=== PATIENT | male | born 1940 | race Caucasian/White ===

== ENCOUNTER → 2016-12-31 | Outpatient (CLI) | payer OTHER ==
[~2016-12-31] MED LIST: ASPI325T39 PO; CRESTOR PO; CRS/10 PO; DUTACAP PO; HYDR-5688 PO; LISI-461 PO; LVMI SC; METO1TAB69 PO; MULT-506 PO; NRN/300 PO; NVLG SC; PRLSR20 PO; RXC5 PO; SITA50TA5 PO
--- NOTE | 2016-12-31 14:49 | DIAGNOSTIC IMAGING REPORT ---
TWO VIEW CHEST CLINICAL HISTORY: Preoperative examination. FINDINGS: PA and lateral chest radiographs are obtained No prior studies are available for comparison at the time of dictation. The patient is status post midline sternotomy. The heart is top normal in size. There is atherosclerotic calcification of the thoracic aorta. The pulmonary vasculature is noncongested. Minimal atelectasis is seen at the left lung base. The lungs and pleural spaces are otherwise clear. There is no pneumothorax. The bony thorax appears intact. IMPRESSION: No active disease in the chest. Electronically signed by: Keith Nava M.D. 12/31/2016 2:48 PM Dictated Date/Time: 12/31/2016 2:45 PM
[2016-12-31 15:28] LABS: BASO % 0.2 %; BASO ABS # 0.02 K/uL (0-0.2); COMPLETE YES; EOS % 5.8 %; HEMATOCRIT 40.3 % (42-52); IG% 0.2 %; LYMPH % 34.2 %; LYMPH ABS # 2.75 K/uL (1.2-3.4); MEAN CELL VOLUME 85.4 fL (80-100); MEAN CORPUSCULAR HEMOGLOBIN 29.2 pg (25-34); MEAN CORPUSCULAR HGB CONC 34.2 g/dl (32-36); MEAN PLATELET VOLUME 10.9 fL (7.4-10.4); MONO % 8.2 %; NEUT % 51.4 %; PLATELET COUNT 229 K/uL (130-400); RED BLOOD COUNT 4.72 M/uL (4.7-6.1); WHITE BLOOD COUNT 8.05 K/uL (4.8-10.8)
[2016-12-31 15:41] LABS: BLOOD UREA NITROGEN 22 mg/dl (7-18); BUN/CREATININE RATIO 18.2 (10-20); CALCIUM 8.9 mg/dl (8.5-10.1); CARBON DIOXIDE 24 mmol/L (21-32); CHLORIDE 107 mmol/L (98-107); GLUCOSE 125 mg/dl (70-99); POTASSIUM 4.3 mmol/L (3.5-5.1); SODIUM 142 mmol/L (136-145)
== END | disposition home or self-care (01) ==
LOC: C.CPL 13:43
PROVIDERS: ATTEND Orthopaedic Surgery
DX: Z01.810 Encounter for preprocedural cardiovascular examination (principal); Z01.811 Encounter for preprocedural respiratory examination; Z01.812 Encounter for preprocedural laboratory examination; M65.331 Trigger finger, right middle finger

== ENCOUNTER → 2017-01-15 | Day surgery (SDC) | payer OTHER ==
[2017-01-01 14:44] VITALS: Ht 181.6 cm; Wt 100.0 kg
[~2017-01-15] VITALS: Ht 181.6 cm; Wt 100.0 kg
[~2017-01-15] MED LIST changes: +ATROPINE SULFATE 0.1 MG/ML 5ML SYR IV PRN; +CEFAZOLIN 2000 MG/60 ML D5W IV SCH; +EpHEDrine SULFATE INJ 50 MG/ML AMP IV PRN; +FENTANYL CITRATE INJ 50 MCG/1 ML 2 ML VIAL IV PRN; +FENTANYL CITRATE INJ 50 MCG/1 ML 2 ML VIAL ONE; +FLUMAZENIL 0.1 MG/1 ML 10 ML VIAL IV PRN; +HYDROCODONE/ACETAMOPHEN 5/325MG TAB PO PRN; +HYDROmorphone INJ 2 MG/ML SYR/VIAL IV PRN; +LABETALOL HCL IV 5 MG/ML 20ML IV PRN; +LACTATED RINGER'S 1000ML 1,000 ML IV SCH; +LIDOCAINE HCL 2% LOCAL 20 ML VIAL ONE; +MEPERIDINE HCL 25 MG/ML CARP IV PRN; +MIDAZOLAM HCL 1 MG/ML 2ML VIAL ONE; +NALOXONE HCL 0.4 MG/1 ML VIAL/CARP IV PRN; +ONDANSETRON INJ 2 MG/ML 2 ML VIAL IV PRN; +PHENYLEPHRINE 100MCG/ML 5ML SYR IV PRN; +PROPOFOL IV EMULSION 10 MG/ML 20 ML VIAL IV ONE; +SODIUM CHLORIDE 0.9% 1000ML 1,000 ML IV SCH
--- NOTE | 2017-01-15 07:41 | History & Physical Bridge - SC ---
H&P Re-Evaluation Bridge Note: I have examined the patient, reviewed the History & Physical and in the interval since the performance of the History & Physical I have noted the following changes of clinical significance: No changes noted
[2017-01-15 10:05] VITALS: TEMP 36.7
--- NOTE | 2017-01-15 10:07 | Discharge Instructions-SurgCtr ---
Discharge Instructions Date of Service Jan 15, 2017. Visit Reason for Visit: Bilateral Long Trigger Fingers Discharge Discharge Diagnosis / Problem: SAME ABOVE Discharge Goals Goal(s): Decrease discomfort, Improve function Medications Stopped Medications Name(s): held janumet for three days Restart Stopped Medication(s): MAY RESTART 01/15/2017 Activity Recommendations Activity Limitations: as noted below Lifting Limitations: gradually increase as tolerated Exercise/Sports Limitations: gradually increase as tolerated Anesthesia . Post Anesthesia Instructions: If you have had General Anesthesia or IV Sedation: * Do not drive today. * Resume driving when surgeon permits. * Do not make important decisions or sign legal documents today. * Call surgeon for: 1. Temperature elevations greater than 101 degrees F. 2. Uncontrollable pain. 3. Excessive bleeding. 4. Persistent nausea and vomiting. 5. Medication intolerance (nausea, vomiting or rash). * For nausea and vomiting use only clear liquids such as: tea, soda, bouillon until nausea subsides, then gradually increase diet as tolerated. * If you have any concerns or questions, call your surgeon's office. If physician is unavailable and it is an emergency, call 911 or go to the nearest emergency room. . Instructions / Follow-Up Instructions / Follow-Up MEDICATIONS: * Resume previous medications unless instructed otherwise by your surgeon. * Always take pain medication on a full stomach or with food to avoid upset stomach. * Do not drink alcohol or drive while taking narcotics. * Ibuprofen or Tylenol may be taken if narcotic not needed. SPECIAL CARE INSTRUCTIONS: __ None _X_ Keep extremity elevated and iced x 48 hours; apply ice 20-30 minutes 8-10 times/day. May remove at night. __ Sling __24 hrs/day __ Remove at night __ Shoulder Immobilizer __ 24 hrs/day __ Remove at night _X_ Dressing __ Maintain until seen in office, may shower with plastic over site _X_ Remove dressings in 5 DAYS. MAY SHOWER SOONER IF COVERED WITH PLASTIC BAG _X_ Cover incisions with band-aids after showering __ Do not remove steri-strips Call physician if chills or temperature rises above 102 degrees or pain unrelieved by prescribed pain medications at . . Diet Recommendations Home Diet: no limitations Fluid Restriction: None Procedures Procedures Performed: Bilateral Long Trigger Finger Releases Pending Studies Studies pending at discharge: no Work Instructions Return To Work: after follow-up Lifting Limitations: no more than 10 pounds Medical Emergencies . Who to Call and When: Medical Emergencies: If at any time you feel your situation is an emergency, please call 911 immediately. . Non-Emergent Contact Non-Emergency issues call your: Primary Care Provider Call Non-Emergent contact if: you have a fever, temperature is above 101.5 . . "Provider Documentation" section prepared by Estevan Franco.
--- NOTE | 2017-01-15 10:21 | Anesthesia Progress Nt - [facility] ---
Anesthesia Post Op Note Date & Time Jan 15, 2017 at 10:20 Vital Signs Pain Intensity: 0 Vital Signs Past 12 Hours Date Time Temp Pulse Resp B/P Pulse Ox O2 Delivery O2 Flow Rate FiO2 01/15/17 10:05 36.7 65 16 123/64 94 Room Air 01/15/17 07:55 36.8 16 145/87 94 Room Air Notes Mental Status: alert / awake / arousable, participated in evaluation Pt Amnestic to Procedure: Yes Nausea / Vomiting: adequately controlled Pain: adequately controlled Airway Patency, RR, SpO2: stable & adequate BP & HR: stable & adequate Hydration State: stable & adequate Anesthetic Complications: no major complications apparent
[2017-01-15 10:26] VITALS: BP 165/82; PULSE 65; O2SAT 92
--- NOTE | 2017-01-15 12:26 | [facility] Post Operative Brief Note ---
Immediate Operative Summary Operative Date Jan 15, 2017. Pre-Operative Diagnosis Bilateral trigger fingers--long finger Post-Operative Diagnosis same Procedure(s) Performed Bilateral Long Trigger Finger Releases Surgeon Dr Mckenzie [facility] Counselor Surgeon(s) Oanh Franco PA-C Estimated Blood Loss 1 ml Findings as above Specimens 0 Complication(s) None Disposition Recovery Room / PACU
--- NOTE | 2017-01-15 12:35 | OPERATIVE REPORT ---
DATE OF OPERATION: 01/15/2017 PREOPERATIVE DIAGNOSIS: Trigger fingers, bilateral middle fingers. POSTOPERATIVE DIAGNOSIS: Same. PROCEDURE: Open trigger finger release of bilateral middle fingers. SURGEON: Dr. Pierce Mckenzie. RACKMAN: Conner Franco PA-C, whose assistance was necessary for positioning the arm and helping with instrumentation. ANESTHESIA: Local with sedation. COMPLICATIONS: None. CONDITION: Stable to PACU. INDICATIONS: Grover is a 76-year-old male who presented to my office with complaints of triggering of his bilateral middle fingers. He had a lot of pain at the A1 pulleys. After failing conservative treatment, he elected to undergo a trigger finger release. On 01/15/2017 he arrived at [facility] for the above procedure. He was seen in the preoperative holding area and the operative extremity was identified and signed. He was given a preoperative antibiotic, taken back to the operating room, laid on the table in supine position and given basic sedation. Both hands were then prepped and draped in sterile fashion. Time-out was done and the patient and operative extremity was properly identified. The surgical site was anesthetized with lidocaine. A longitudinal incision was made directly over the A1 sailaja of the middle finger. Dissection was taken down through the fascia with care not to disrupt the digital nerves. The A1 sailaja was easily identified. A knife and tenotomy scissors were then used to completely resect the A1 sailaja. Complete resection was checked both proximally and distally. The wound was then irrigated and closed with 4-0 nylon sutures and placed in a soft dressing. The same procedure was done to the contralateral side. A longitudinal incision was made over the A1 sailaja and it was released. Complete release was checked both proximally and distally. The wound was then closed with 4-0 nylon sutures placed and he was placed in a soft dressing. He was then taken to the postanesthesia care unit in stable condition. He tolerated the procedure well. I attest to the content of the Intraoperative Record and any orders documented therein. Any exceptio ns are noted below.
== END | disposition home or self-care (01) ==
LOC: X.SURG 07:31
PROVIDERS: ATTEND Orthopaedic Surgery
DX: M65.331 Trigger finger, right middle finger (principal); M65.332 Trigger finger, left middle finger; Z98.890 Other specified postprocedural states; I51.9 Heart disease, unspecified; Z82.49 Family history of ischemic heart disease and other diseases of the circulatory system

== ENCOUNTER 2017-02-27 05:12 | Inpatient (IN) | payer OTHER ==
[2017-01-27 13:06] VITALS: BMI 31.0
--- NOTE | 2017-01-27 13:55 | PAT Medication Instructions ---
Service Date Jan 27, 2017. Current Home Medication List Aspirin (Aspirin Ec), 325 MG PO QAM Dutasteride-Tamsulosin Hcl (Sera), 1 CAP PO QPM Gabapentin (Neurontin), 300 MG PO BID Insulin Aspart (Novolog), UNITS SC UD Insulin Detemir (Levemir), 104 UNITS SC HS Lisinopril (Zestril), 10 MG PO QAM Metoprolol Succ (Toprol Xl) (Toprol-Xl ), 100 MG PO QAM Multivitamin (Multivitamin), 1 TAB PO QAM Omeprazole (Prilosec), 20 MG PO QAM Rosuvastatin Calcium (Crestor), 10 MG PO QPM Sitagliptin-Metformin Hcl (Janumet), 1 TAB PO BID Medication Instructions For Your Scheduled Surgery - Per surgeon/cardiology/vascular surgeon instructions: Aspirin (Aspirin Ec), 325 MG PO QAM (to decrease to ASA 81mg for 7 days prior to surgery) - Hold the following medications 48 hours prior to surgery: Sitagliptin-Metformin Hcl (Janumet), 1 TAB PO BID - Hold the following medications the morning of surgery: Multivitamin (Multivitamin), 1 TAB PO QAM Lisinopril (Zestril), 10 MG PO QAM Insulin Aspart (Novolog), UNITS SC UD - Take the following medications the morning of surgery with a sip of water: Omeprazole (Prilosec), 20 MG PO QAM Metoprolol Succ (Toprol Xl) (Toprol-Xl ), 100 MG PO QAM Gabapentin (Neurontin), 300 MG PO BID - Take the following medications as scheduled the night before surgery: Rosuvastatin Calcium (Crestor), 10 MG PO QPM Insulin Detemir (Levemir), 104 UNITS SC HS Gabapentin (Neurontin), 300 MG PO BID Dutasteride-Tamsulosin Hcl (Sera), 1 CAP PO QPM If you have any questions please call us at [phone] (Marguerite Lou PA-C) or [phone] or [phone]
[2017-01-27 14:55] LABS: URINE APPEARANCE CLEAR (CLEAR); URINE BILIRUBIN NEG (NEG); URINE COLOR YELLOW; URINE NITRITE NEG (NEG); URINE SPECIFIC GRAVITY 1.015 (1.000-1.030); UROBILINOGEN NEG (NEG)
[2017-01-27 15:07] LABS: MANUAL MICROSCOPIC REQUIRED? NO; REVIEW REQ? NO
[2017-01-27 15:11] LABS: PROTHROMBIN TIME (PATIENT) 10.9 SECONDS (9.0-12.0)
--- NOTE | 2017-02-26 18:21 | HISTORY & PHYSICAL EXAMINATION ---
DATE OF ADMISSION: 02/27/2017 PREOPERATIVE DIAGNOSIS: Primary osteoarthritis of the left knee. HISTORY OF PRESENT ILLNESS: Grover is a pleasant 76-year-old male who has been dealing with chronic left knee pain. X-rays and clinical examination are diagnostic for primary osteoarthritis of the knee. He has failed years of conservative treatment including multiple intra-articular injections and elected to proceed with a total knee arthroplasty. PAST MEDICAL HISTORY: Significant for heart disease, diabetes and hyperlipidemia. PAST SURGICAL HISTORY: Significant for an endarterectomy and a cardiac procedure. ALLERGIES: None. MEDICATIONS: Include Janumet, aspirin, gabapentin, Sera, Levemir, Lipitor, lisinopril, metoprolol, NovoLog, omeprazole and Zyrtec. FAMILY HISTORY: Noncontributory. SOCIAL HISTORY: He is . Has 1-2 drinks a week. Denies tobacco or IV drug use. He is moderately active. REVIEW OF SYSTEMS: He complains of left knee pain. All other pertinent review of systems is negative. PHYSICAL EXAMINATION: GENERAL: He is awake, alert and oriented x3. He is in no apparent distress. He is very pleasant. HEENT: Pupils are equal, round and reactive to light. Extraocular motion intact. Oral mucosa is pink, moist. HEART: Regular rate per radial pulse. LUNGS: Gloria symmetrically bilaterally with no audible breath sounds. ABDOMEN: Soft, nontender, nondistended. MUSCULOSKELETAL: On physical examination of the left knee, there is no effusion. He has range of motion from 0-120 degrees. He does have crepitus through range of motion. There is no instability. He has painless range of motion of his hip and significant tenderness to palpation over both the medial and lateral femoral condyles. IMAGING DATA: X-rays of the left knee do show advanced osteoarthritis with joint space narrowing and osteophyte formation. IMPRESSION: Advanced osteoarthritis of the left knee. PLAN: Will proceed with a Biomet Vanguard left total knee arthroplasty. Postoperatively, he will be kept for 2 midnights in the hospital for postoperative medical management. We will start him on aspirin 325 mg twice a day for DVT prophylaxis.
[2017-02-27] VITALS (8 sets, daily range): BP systolic 117–156; BP diastolic 67–95; PULSE 65–93; TEMP 36.5–36.6; O2SAT 91–95; Ht 180.3 cm; Wt 101.8 kg
[~2017-02-27] VITALS: Ht 180.3 cm; Wt 101.8 kg
[~2017-02-27 05:12] MED LIST changes: -ATROPINE SULFATE 0.1 MG/ML 5ML SYR IV PRN; -CEFAZOLIN 2000 MG/60 ML D5W IV SCH; -CRESTOR PO; -EpHEDrine SULFATE INJ 50 MG/ML AMP IV PRN; -FENTANYL CITRATE INJ 50 MCG/1 ML 2 ML VIAL IV PRN; -FENTANYL CITRATE INJ 50 MCG/1 ML 2 ML VIAL ONE; -FLUMAZENIL 0.1 MG/1 ML 10 ML VIAL IV PRN; -HYDR-5688 PO; -HYDROCODONE/ACETAMOPHEN 5/325MG TAB PO PRN; -HYDROmorphone INJ 2 MG/ML SYR/VIAL IV PRN; -LABETALOL HCL IV 5 MG/ML 20ML IV PRN; -LACTATED RINGER'S 1000ML 1,000 ML IV SCH; -LIDOCAINE HCL 2% LOCAL 20 ML VIAL ONE; -MEPERIDINE HCL 25 MG/ML CARP IV PRN; +METO100T44 PO; -METO1TAB69 PO; -MIDAZOLAM HCL 1 MG/ML 2ML VIAL ONE; -NALOXONE HCL 0.4 MG/1 ML VIAL/CARP IV PRN; -ONDANSETRON INJ 2 MG/ML 2 ML VIAL IV PRN; -PHENYLEPHRINE 100MCG/ML 5ML SYR IV PRN; -PROPOFOL IV EMULSION 10 MG/ML 20 ML VIAL IV ONE; -RXC5 PO; -SODIUM CHLORIDE 0.9% 1000ML 1,000 ML IV SCH
[2017-02-27] MEDS ORDERED: FAMOTIDINE 20 MG TAB PO SCH (06:00)
[2017-02-27] MEDS ORDERED: ROPIVACAINE 5MG/ML 30 ML 150 MG, BUPIVACAINE/EPINEPHR 0.5% MPF 30 ML, KETOROLAC TROMETH... INFIL SCH ×7 (06:00)
[2017-02-27] MEDS ORDERED: ACETAMINOPHEN 500 MG TAB PO SCH (06:00)
[2017-02-27] MEDS ORDERED: GABAPENTIN 300 MG CAP PO SCH (06:00)
[2017-02-27] MEDS ORDERED: CEFAZOLIN 2000 MG/60 ML D5W 60 ML IV SCH (06:00)
[2017-02-27] MEDS ORDERED: LACTATED RINGER'S 1000ML 500 ML IV ONE (06:00)
[2017-02-27] MEDS ORDERED: LACTATED RINGER'S 1000ML 1,000 ML IV SCH ×2 (06:00)
[2017-02-27] MEDS ORDERED: BUPIVACAINE 0.25% 30 ML VIAL ONE (06:19)
[2017-02-27] MEDS ORDERED: BUPIVACAINE 0.5 % 5 MG/1 ML PF 10ML VIAL ONE (06:19)
[2017-02-27] MEDS ORDERED: ORTHO JOINT ANESTHETIC ONE (06:29)
[2017-02-27] MEDS ORDERED: BACITRACIN 50000 UNIT VIAL ONE (06:30)
[2017-02-27] MEDS ORDERED: MIDAZOLAM HCL 1 MG/ML 2ML VIAL ONE ×2 (06:37)
[2017-02-27] MEDS ORDERED: PROPOFOL IV EMULSION 10 MG/ML 20 ML VIAL IV ONE (06:37)
[2017-02-27] MEDS ORDERED: FENTANYL CITRATE INJ 50 MCG/1 ML 2 ML VIAL ONE (06:45)
[2017-02-27] MEDS ORDERED: HYDROmorphone INJ 2 MG/ML SYR/VIAL ONE (07:15)
[2017-02-27] MEDS ORDERED: LIDOCAINE HCL 2% 2 ML VIAL (20MG/ML) ONE (07:31)
[2017-02-27] MEDS ORDERED: DEXAMETHASONE SOD INJ 4 MG/ML VIAL ONE (07:32)
[2017-02-27] MEDS ORDERED: ONDANSETRON INJ 2 MG/ML 2 ML VIAL ONE (07:32)
[2017-02-27] MEDS ORDERED: PHENYLEPHRINE 100MCG/ML 5ML SYR ONE (07:39)
[2017-02-27] MEDS ORDERED: EpHEDrine SULFATE 50MG/5ML SYR ONE (07:39)
[2017-02-27] MEDS ORDERED: VASOPRESSIN 20 UNIT/ML VIAL ONE (08:21)
--- NOTE | 2017-02-27 08:44 | [facility] Post Operative Brief Note ---
Immediate Operative Summary Operative Date Feb 27, 2017. Pre-Operative Diagnosis Advanced osteoarthritis of the left knee Post-Operative Diagnosis Same as preop Procedure(s) Performed Left Total Knee Arthroplasty Surgeon Dr. Mckenzie Artificial Flower Maker Surgeon(s) Conner Franco PA-C Estimated Blood Loss 20 ml Findings as above Specimens A. Left Knee Bone and Tissue Complication(s) None Disposition Recovery Room / PACU
[2017-02-27] MEDS ORDERED: MoRPHine SULFATE 2 MG/ML CARP IV PRN (08:45)
[2017-02-27] MEDS ORDERED: SOD PHOSPHATE/SOD BIPHOSPHATE ENEMA 132 ML BTL PR PRN (08:45)
[2017-02-27] MEDS ORDERED: ONDANSETRON INJ 2 MG/ML 2 ML VIAL IV PRN (08:45)
[2017-02-27] MEDS ORDERED: MAGNESIUM HYDROXIDE SUSP 30 ML UDC PO PRN (08:45)
[2017-02-27] MEDS ORDERED: METOCLOPRAMIDE HCL INJ 5 MG/ML 2 ML VIAL IV PRN (08:45)
[2017-02-27] MEDS ORDERED: SILVER SULFADIAZINE 1% CR 50 GM JAR EXT PRN (08:45)
[2017-02-27] MEDS ORDERED: BISACODYL 10 MG SUPP PR PRN (08:45)
--- NOTE | 2017-02-27 09:14 | OPERATIVE REPORT ---
DATE OF OPERATION: 02/27/2017 PREOPERATIVE DIAGNOSIS: Primary osteoarthritis of the left knee. POSTOPERATIVE DIAGNOSIS: Same. PROCEDURE: Left total knee arthroplasty. SURGEON: Dr. Pierce Mckenzie. STORAGE GARAGE ATTENDANT: Conner Franco PA-C, whose assistance was necessary for positioning of the knee and helping with retraction. ANESTHESIA: General with a left femoral nerve block. COMPLICATIONS: None. CONDITION: Stable to PACU. IMPLANTS USED: I used a Biomet Vanguard total knee arthroplasty with a 67.5 left femur, a 79 tibia, a 34 patella, and a 12 posterior stabilized bearing. Palacos G cement was used on all components. INDICATIONS: Grover is a pleasant 76-year-old male who presented to my office with chronic left knee pain. X-rays and clinical examination were diagnostic for primary osteoarthritis of the left knee. After failing extensive conservative treatment, he elected to undergo a left total knee arthroplasty. OPERATION AND FINDINGS: On 02/27/2017, he arrived at [facility] for the above procedure. He was seen in the preoperative holding area and the operative extremity was identified and signed. He was given preoperative antibiotics and TXA. He was given a left femoral nerve block, but because he had aspirin recently, he was not given a spinal anesthetic. He was taken back to the operating room, laid on the table in supine position, and put under general anesthesia. The left knee was then prepped and draped in sterile fashion. Timeout was done, and the patient and operative extremity was properly identified. Tourniquet was inflated to 300 mmHg. An incision was made midline over the patella. Dissection was taken down to the extensor mechanism and a medial parapatellar approach was used. The fat pad was excised, the medial retinaculum was released, and the knee was flexed. ACL, PCL, and menisci were removed. A drill was sent down the center of the femoral canal. An intramedullary guide juan was placed, and off that juan, a distal femoral cutting block was placed. 11 mm was resected off the distal femur at 5 degrees of valgus because he had a flexion contracture. A posterior referencing guide was then used and the femur measured to be a size 67.5. Two drill holes were placed in 3 degrees of external rotation and a 3-in-1 cutting block was impacted into place. Anterior, posterior and chamfer cuts were then made. A box cutting guide for the posterior stabilizing component was then impacted into place and the box was resected. The proximal tibia was exposed. A drill was sent down the center of the tibial canal, followed by an intramedullary juan. Off that juan, a proximal tibial resection guide was placed and 3 mm was taken off the low medial side. A size 12 block was used and I was happy with my flexion and extension gaps. The posterior aspect of the knee was then opened up and osteophytes were removed posteriorly as well as any remnant soft tissue. The tibia was then measured to be a size 79. It was set in the appropriate rotation, drilled and then punched. Femoral and tibial components were placed as was the size 12 poly. The knee was brought through a full range of motion and felt to be stable. The patella was then everted and 8.5 mm was resected off the posterior aspect of the patella. The patella measured to be a size 34, three drill holes were placed. The patellar button was applied and the knee was brought through a full range of motion and felt to be stable. All trial components were then removed. The surrounding soft tissues were then injected with 100 mL of an orthopedic pain control cocktail. The femoral, tibial and patellar components were then cemented with Palacos G cement. Once cement had hardened, several polyethylene trials were used and a size 12 posterior stabilized bearing seemed to be the best fit. The final bearing was snapped into place and anterior bar was locked. The knee was brought through a full range of motion and felt to be stable. The tourniquet was then deflated and hemostasis was controlled. The entire joint was then irrigated with 3 liters of normal saline solution with bacitracin. Two drains were placed. The extensor mechanism was closed with #2 FiberWire suture in the superior medial aspect of the patella and #1 Vicryl for the remainder of that closure. Skin was closed with 3-0 V-Loc suture and richard. He was placed in a soft compressive dressing, extubated, transferred to a [facility] and taken to the postanesthesia care unit in stable condition. He tolerated the procedure well. I attest to the content of the Intraoperative Record and any orders documented therein. Any exceptio ns are noted below.
[2017-02-27] MEDS ORDERED: EpHEDrine SULFATE INJ 50 MG/ML AMP IV PRN (09:15)
[2017-02-27] MEDS ORDERED: ATROPINE SULFATE 0.1 MG/ML 5ML SYR IV PRN (09:15)
--- NOTE | 2017-02-27 09:53 | DIAGNOSTIC IMAGING REPORT ---
LEFT KNEE 2 VIEWS History: Left total knee arthroplasty. Degenerative arthritis. Postop. FINDINGS: The patient is status post a left total knee arthroplasty. The hardware is intact. No fracture or dislocation. Skin richard and surgical drains are in place. IMPRESSION: Left total knee arthroplasty. No evidence for hardware complication. Electronically signed by: Sergio Moreira M.D. 02/27/2017 9:52 AM Dictated Date/Time: 02/27/2017 9:51 AM
--- NOTE | 2017-02-27 09:53 | Anesthesiology Progress Note ---
Anesthesia Post Op Note Date & Time Feb 27, 2017 at 09:53 Vital Signs Pain Intensity: 0 Vital Signs Past 12 Hours Date Time Temp Pulse Resp B/P Pulse Ox O2 Delivery O2 Flow Rate FiO2 02/27/17 09:30 36.9 73 16 131/76 95 Nasal Cannula 3 02/27/17 09:20 77 16 132/75 96 Mask 5 02/27/17 09:10 71 14 110/63 93 Mask 10 02/27/17 09:00 37.0 72 14 110/65 95 Mask 10 02/27/17 05:42 36.5 76 20 144/95 95 Room Air Notes Mental Status: alert / awake / arousable, participated in evaluation Pt Amnestic to Procedure: Yes Nausea / Vomiting: adequately controlled Pain: adequately controlled Airway Patency, RR, SpO2: stable & adequate BP & HR: stable & adequate Hydration State: stable & adequate Anesthetic Complications: no major complications apparent
[2017-02-27] MEDS ORDERED: GLUCOSE 10 TABS/TUBE PO PRN (11:15)
[2017-02-27] MEDS ORDERED: DEXTROSE 50% 50 ML SYR IV PRN (11:15)
[2017-02-27] MEDS ORDERED: GLUCAGON FOR INJ 1 MG VIAL SQ PRN (11:15)
[2017-02-27] MEDS ORDERED: GLUCOSE 40% GEL 15 GM TUBE PO PRN (11:15)
[2017-02-27] MEDS ORDERED: PHARMACY GLYCEMIC MGMT CONSULT PRN (11:45)
[2017-02-27] MEDS: SODIUM CHLORIDE 0.9% 1000ML 1,000 ML IV SCH ×2 (12:08→21:24)
[2017-02-27] MEDS: ASPIRIN 325 MG ECTAB PO SCH ×2 (12:37→21:25)
[2017-02-27] MEDS: DOCUSATE SODIUM 100 MG CAP PO SCH ×2 (12:37→21:24)
[2017-02-27] MEDS: MULTIVITAMIN TAB PO SCH (12:38)
[2017-02-27] MEDS: GABAPENTIN 300 MG CAP PO SCH ×2 (12:38→21:26)
[2017-02-27] MEDS: PANTOprazole SOD 40 MG TAB PO SCH (12:38)
[2017-02-27] MEDS: METOPROLOL SUCC 50MG EXT REL TAB PO SCH (12:39)
[2017-02-27] MEDS: LISINOPRIL 10 MG TAB PO SCH (12:39)
[2017-02-27] MEDS: KETOROLAC TROMETHAMINE 15 MG/ML VIAL IV. SCH ×3 (12:43→23:59)
[2017-02-27] MEDS: INSULIN ASPART 100 UNITS/ML 3 ML PEN SC SCH ×4 (13:38→23:58)
[2017-02-27] MEDS: ACETAMINOPHEN IV 1,000 MG in EMPTY BAG 0 ML IV SCH ×2 (13:41→21:41)
[2017-02-27] MEDS: CEFAZOLIN IV 2,000 MG in DEXTROSE 5% 50ML 50 ML IV SCH ×2 (13:41→22:02)
--- NOTE | 2017-02-27 13:57 | Pharmacy Progress Note ---
Glycemic Control Intl Consult Date of Service Feb 27, 2017. Scope Glycemic Pharmacist consulted by Dr Mckenzie on 02/27/17 for glycemic control and to write orders per [facility] inpatient glycemic control protocol Objective Weight (Kilograms): 103.60 Accuchecks BSG (last 24hrs): Test 02/27/17 05:38 02/27/17 09:06 02/27/17 12:22 Bedside Glucose 169 mg/dl (70-99) 193 mg/dl (70-99) 248 mg/dl (70-99) Recent Pertinent Medications Outpatient Anti-diabetic Regimen: * NovoLog * 4 units SQ with breakfast * 18-20 units SQ with lunch * 6-8 units SQ with lunch * + Sliding scale for all meals * Levemir * 104 units SQ q PM * Janumet 50/1000mg * 1 tablet PO BID * A1c unknown at time of consult Risk Factors for Insulin Resistance: * Steroids: Dexamethasone 4mg IV x1 dose intraoperatively today * Infection: cefazolin IV perioperatively * IVF: LR --> NSS * Recent Surgery: POD #0 * Diet: T2DM Assessment & Plan ASSESSMENT: Initial: * ADA & AACE recommend a goal blood sugar range 140-180 mg/dl for the majority of critically ill & non-critically ill patients. However, more stringent targets may be selected in individual cases. Will utilize more stringent goal of 110-140mg/dl based on patient age & comorbidities. Additionally, tighter glycemic control is warranted to facilitate wound/infection healing. * 76 y/o type 2 diabetic who uses both basal and bolus insulin as well as Janumet to manage his diabetes as an outpatient. * home regimen discussed and clarified with patient, also chart of dosing and bsgs reviewed * A1c unknown at time of consult * Admitted postoperatively today - did receive dexamethasone in OR * expect profound effect on BSGs as patient reports hyperglycemia with steroids in the past PLAN FOR INPATIENT GLYCEMIC CONTROL: * Basal insulin: * Levemir SQ q HS - 75 units if BSG is below 120mg/dL - 85 units if BSG is 120-180mg/dL - 100 units if BSG is > 180mg/dL * Bolus insulin: * NovoLog SQ AC/HS/ - Correction factor: 15mg/dL/unit (may need tightened if hyperglycemia persists) - Carb ratio: 1 unit per 5g of CHO consumed (may need tighten if hyperglycemia persists) - Goal range: 110-140mg/dL * Oral agents: * hold at this time until PO intake established/closer to discharge * A1c - unknown at time of consult * order with AM labs 02/28/17 * add to discharge instructions RECOMMENDATIONS FOR DISCHARGE: * Awaited * Please note that the plan above was derived based on current level of insulin resistance and hospital stress. These recommendations are appropriate for inpatient admission only. Plan of care upon discharge will need to be reassessed to avoid potential outpatient hypo/hyperglycemia. Thank you.
[2017-02-27] MEDS ORDERED: [UNRECOGNIZED DRUG - REMARK] PO SCH (16:00)
[2017-02-27] MEDS ORDERED: NURSING VERBAL MED ORDER ONE (20:30)
[2017-02-27] MEDS ORDERED: ROSUVASTATIN CALCIUM 10 MG TAB PO SCH (21:00)
[2017-02-27] MEDS: ROSUVASTATIN CALCIUM 10 MG TAB PO SCH (21:25)
[2017-02-27] MEDS: SENNA 8.6 MG TAB PO SCH (21:27)
[2017-02-27] MEDS: INSULIN DETEMIR SC SCH (21:36)
[2017-02-27] MEDS: DUTASTERIDE-TAMSULOSIN HCL 1 CAP CAP PO SCH (22:33)
[2017-02-28 03:17] VITALS: BP 111/66; PULSE 70; TEMP 36.7; O2SAT 94
[2017-02-28] MEDS: INSULIN ASPART 100 UNITS/ML 3 ML PEN SC SCH ×5 (04:32→20:54)
[2017-02-28] MEDS: ACETAMINOPHEN IV 1,000 MG in EMPTY BAG 0 ML IV SCH ×3 (05:48→22:10)
[2017-02-28] MEDS: KETOROLAC TROMETHAMINE 15 MG/ML VIAL IV. SCH ×4 (05:49→23:32)
[2017-02-28] MEDS: SODIUM CHLORIDE 0.9% 1000ML 1,000 ML IV SCH (06:35)
[2017-02-28 06:37] LABS: HEMATOCRIT 32.6 % (42-52); MEAN CELL VOLUME 86.9 fL (80-100); MEAN CORPUSCULAR HEMOGLOBIN 28.5 pg (25-34); MEAN CORPUSCULAR HGB CONC 32.8 g/dl (32-36); PLATELET COUNT 201 K/uL (130-400); RED BLOOD COUNT 3.75 M/uL (4.7-6.1); WHITE BLOOD COUNT 12.02 K/uL (4.8-10.8)
[2017-02-28 07:12] LABS: ESTIMATED AVERAGE GLUCOSE 160 mg/dl; HA1C FLAG Normal (Normal)
[2017-02-28 07:13] LABS: BUN/CREATININE RATIO 20.1 (10-20); CALCIUM 8.1 mg/dl (8.5-10.1); CREATININE 1.4 mg/dl (0.60-1.40); POTASSIUM 4.2 mmol/L (3.5-5.1)
[2017-02-28] MEDS ORDERED: RXC5 PO (07:22)
--- NOTE | 2017-02-28 07:25 | Discharge Instructions ---
Discharge Instructions Date of Service Feb 28, 2017. Admission Reason for Admission: Left Knee Osteoarthritis Discharge Discharge Diagnosis / Problem: Arthritis Right Knee Discharge Goals Goal(s): Decrease discomfort, Improve function Activity Recommendations Activity Limitations: as noted below . Instructions / Follow-Up Instructions / Follow-Up Activity and Therapy Recommendations: * If you are using [facility] then Physical Therapy will be provided until they feel you are ready to start Outpatient Physical Therapy. If you are not using a Home Health agency then Outpatient Physical Therapy should start about 3-5 days from your day of surgery. Therapy will last about 6-10 weeks * It is important not to put a pillow under your knee when you are relaxing or sleeping. It is just as important to make sure you are getting your knee perfectly straight as it is to regain your knee bend. * You were shown a series of exercises in the hospital. Do these exercises three times each day including the exercises you were shown in physical therapy. * Get up and walk several times each day. For the first four weeks, try not to stand or walk for more than one hour at a time. If you do stand or walk for more than one hour, you will not hurt anything, but your leg will likely swell. * As you feel comfortable, you may change from the walker or crutches to a cane and then to independent walking. Medications: * Narcotic You will likely be sent home from the hospital with a prescription for the narcotic pain medication that worked best throughout your stay. * Aspirin Most patients will be required to take Aspirin 325mg twice a day for 6 weeks after surgery. This is obtained [id number] and a prescription is not necessary. * Other medications may be prescribed for specific circumstances. If you have any questions, please call the office at . * Resume previous home medications unless otherwise instructed TEDs/Elastic Stockings: The white elastic stockings help limit swelling and prevent blood clots from forming in your legs.~ The more you wear them, the more they work. Wear them for six weeks. Showering: You may shower 5 days from the day of surgery. Let the soapy shower water run over it the incision. Do not scrub or soak the incision. Things To Watch For: * Drainage from the incision site that occurs more than one week after your surgery. * Increased redness at the incision site. * Fever above 102 degrees Fahrenheit. * Unusual chest pain or shortness of breath. * Call [facility] at with any of the above problems Follow-Up Visit: Follow-up with Dr. Mckenzie 2-3 weeks after your day of surgery. An appointment was probably scheduled when you signed-up for surgery in the office. If you have any questions call Office Instructions: More detailed instructions as well as Frequently Asked Questions were provided in a folder by our office when you signed-up for surgery. Please review these instructions when you get home. If you have any further questions or concerns, please feel free to call the office at [phone] Current Hospital Diet Patient's current hospital diet: Diabetes Type 2 Diet Discharge Diet Recommended Diet: Diabetes Type 2 Diet Procedures Procedures Performed: Left Total Knee Arthroplasty Pending Studies Studies pending at discharge: no Laboratory Results Hemoglobin A1c Test 02/28/17 05:38 Range/Units Estimated Average Glucose 160 mg/dl Hemoglobin A1c 7.2 H 4.5-5.6 % Medical Emergencies . Who to Call and When: Medical Emergencies: If at any time you feel your situation is an emergency, please call 911 immediately. . Non-Emergent Contact Non-Emergency issues call your: Surgeon Call Non-Emergent contact if: wound has increased drainage, wound has increased redness . "Provider Documentation" section prepared by Pierce Mckenzie. . VTE Core Measure Inpt VTE Proph given/why not?: Other Anticoagulation (Aspirin 325 twice a day for 6 weeks)
[2017-02-28 07:37] VITALS: BP 124/76; PULSE 68; TEMP 36.6; O2SAT 94
[2017-02-28] MEDS: ASPIRIN 325 MG ECTAB PO SCH ×2 (08:35→20:41)
[2017-02-28] MEDS: LISINOPRIL 10 MG TAB PO SCH (08:36)
[2017-02-28] MEDS: METOPROLOL SUCC 50MG EXT REL TAB PO SCH (08:36)
[2017-02-28] MEDS: DOCUSATE SODIUM 100 MG CAP PO SCH ×2 (08:36→20:41)
[2017-02-28] MEDS: MULTIVITAMIN TAB PO SCH (08:37)
[2017-02-28] MEDS: PANTOprazole SOD 40 MG TAB PO SCH (08:37)
[2017-02-28] MEDS: GABAPENTIN 300 MG CAP PO SCH ×2 (08:37→20:41)
--- NOTE | 2017-02-28 08:40 | PROGRESS NOTE ---
DATE: 02/28/2017 CHIEF COMPLAINT: Status post left total knee arthroplasty. HISTORY OF PRESENT ILLNESS: Grover was seen and examined at bedside today. Overall, he is doing very well. He is lying with his knee in full extension. He really does not have any pain. He is able to get some sleep last night and has no complaints. PHYSICAL EXAMINATION: On examination of the left knee, the dressing is clean and dry and the drain is to suction. He has active dorsiflexion and plantarflexion of his left knee. Sensation is intact throughout. His vital signs are all stable on room air. He is voiding on his own. LABORATORY DATA: DATA: He has an H\T\H today of 10.7 and 32.6. His glucose is a little high at around 200. IMAGING DATA: X-rays postoperatively of the left knee showed the prosthesis to be in anatomical alignment without any evidence of fracture, dislocation or loosening. IMPRESSION: Status post left total knee arthroplasty postop day #1. PLAN: We will work on pain control and do physical therapy today. Tomorrow, the nursing staff can change the dressing, pull the drain and likely discharge him to home with oral pain medications.
[2017-02-28] MEDS: OXYCODONE HCL IR 5 MG TAB (IMMEDIATE RELEASE) PO PRN ×2 (09:39→20:41)
[2017-02-28 11:30] VITALS: BP 120/78; PULSE 74; TEMP 36.8; O2SAT 92
--- NOTE | 2017-02-28 14:39 | Pharmacy Progress Note ---
Glycemic: Assessment & Plan Date of Service Feb 28, 2017. Assessment & Plan Assessment * BSG's trending down steadily on current regimen * Dexamethasone effects likely dissipating at this time * Will significantly loosen correction factor and carb ratio to prevent further downward trend in BSG's * Will also decrease Levemir dose as patient's outpatient basal dose is significantly greater than cumulative bolus doses (thus may be too much for inpatient administration) Plan * Basal insulin: Levemir SC HS based on BSG 60 units for BSG < 120 mg/dL 70 units for BSG 120-180 mg/dL 80 units for BSG > 180 mg/dL * Correctional Insulin: Novolog Correction per scale ACHS Goal Range: Low 110 mg/dL - High 140 mg/dL Correction Factor: 20 mg/dL/unit * Prandial insulin: Per carb ratio of 1 unit per 7 grams CHO consumed Pharmacy will continue to monitor patient daily and write orders per [facility] inpatient glycemic control protocol. Thanks. * Please note that the plan above was derived based on current level of insulin resistance and hospital stress. These recommendations are appropriate for inpatient admission only. Plan of care upon discharge will need to be reassessed to avoid potential outpatient hypo/hyperglycemia.
[2017-02-28 15:08] VITALS: BP 105/64; PULSE 61; TEMP 36.7; O2SAT 95
[2017-02-28] MEDS: DUTASTERIDE-TAMSULOSIN HCL 1 CAP CAP PO SCH (20:42)
[2017-02-28] MEDS: SENNA 8.6 MG TAB PO SCH (20:42)
[2017-02-28] MEDS: ROSUVASTATIN CALCIUM 10 MG TAB PO SCH (20:42)
[2017-02-28] MEDS: INSULIN DETEMIR SC SCH (20:54)
[2017-02-28 23:34] VITALS: BP 160/83; PULSE 71; TEMP 36.6; O2SAT 91
[2017-02-28 23:54] VITALS: BP 126/73
[2017-03-01] MEDS: ACETAMINOPHEN IV 1,000 MG in EMPTY BAG 0 ML IV SCH (06:10)
[2017-03-01] MEDS: KETOROLAC TROMETHAMINE 15 MG/ML VIAL IV. SCH (06:11)
[2017-03-01 06:46] VITALS: BP 118/70; PULSE 61; TEMP 36.7; O2SAT 93
--- NOTE | 2017-03-01 08:25 | PROGRESS NOTE ---
DATE: 03/01/2017 CHIEF COMPLAINT: Status post left total knee arthroplasty postop day #2. PROGRESS: Grover was seen and examined at bedside today. Overall, he is doing very well. He has very little pain in his left knee. He has been up and ambulating well with physical therapy, has no complaints. PHYSICAL EXAMINATION: LEFT KNEE: He is lying there with a bump under his left ankle and his knee in full extension. The dressing has been changed and drain has been pulled and the incision looks good. He is neurovascularly intact. IMPRESSION: Status post left total knee arthroplasty postop day #2. PLAN: At this point, he is doing very well. She will get more physical therapy this morning. His pain is well controlled. Will discharge him to home later this morning. VASYL
--- NOTE | 2017-03-01 08:43 | DISCHARGE SUMMARY ---
DISCHARGE DIAGNOSIS: Primary osteoarthritis of the left knee. PROCEDURE: Left total knee arthroplasty on 02/27/[address] Pierce Mckenzie. DISCHARGE INSTRUCTIONS: 1. Oxycodone 5-10 mg every 4 hours as needed for pain. 2. Sera 1 cap daily. 2. Neurontin 300 mg twice a day. 3. NovoLog 100 units injection subQ daily. 4. Levemir 104 units subQ at night. 5. Zestril 10 mg daily. 6. Toprol 100 mg daily. 7. Daily multivitamin. 8. Prilosec 20 mg daily. 9. Crestor 10 mg daily. 11. Aspirin 325 mg twice a day. 12. MAURO hose stockings for 6 weeks. 13. Follow up with Dr. Mckenzie in 2 weeks. 14. Call the office of Dr. Mckenzie with any questions or concerns. HOSPITAL COURSE: Grover is a pleasant 76-year-old male who presented to my office with chronic left knee pain. X-rays and clinical examination were diagnostic for primary osteoarthritis of the left knee. After failing conservative treatment, he elected to undergo a left total knee arthroplasty. On 02/27/2017 he arrived at [facility] and underwent a right knee replacement without complications. He had a general anesthetic and a left femoral nerve block. Postoperatively, he was placed in a compressive dressing and discharged to general orthopedic floor. His hospital course was uneventful. On postop day #1, his H\T\H was stable at 10.7 and 32.6. His pain was well controlled. He was able to be up and ambulating very well with physical therapy. On postop day #2, he continued to do well. He had very minimal pain in his knee. He was working hard with physical therapy. The dressing was changed, the drain was pulled and he was currently discharged to home with oral pain medications and the above instructions. [facility]ITALNaomie
[2017-03-01] MEDS: INSULIN ASPART 100 UNITS/ML 3 ML PEN SC SCH (08:53)
[2017-03-01] MEDS: DOCUSATE SODIUM 100 MG CAP PO SCH (08:54)
[2017-03-01] MEDS: PANTOprazole SOD 40 MG TAB PO SCH (08:55)
[2017-03-01] MEDS: LISINOPRIL 10 MG TAB PO SCH (08:55)
[2017-03-01] MEDS: GABAPENTIN 300 MG CAP PO SCH (08:55)
[2017-03-01] MEDS: ASPIRIN 325 MG ECTAB PO SCH (08:55)
[2017-03-01] MEDS: MULTIVITAMIN TAB PO SCH (08:55)
[2017-03-01] MEDS: METOPROLOL SUCC 50MG EXT REL TAB PO SCH (08:55)
[2017-03-01 09:40] VITALS: BP 118/70; PULSE 61; TEMP 36.7; O2SAT 93
[2017-03-01] MEDS: OXYCODONE HCL IR 5 MG TAB (IMMEDIATE RELEASE) PO PRN (10:28)
== END 2017-03-01 10:51 | disposition home health service (06) | DRG 470 ==
LOC: ENRESERVTM → ENRESERVDT → C.ACU 05:12 → C.3E 06:30
PROVIDERS: ADMIT Orthopaedic Surgery; ATTEND Orthopaedic Surgery
PROC: 0SRD0J9 Replacement of Left Knee Joint with Synthetic Substitute, Cemented, Open Approach (ICD-10-PCS; principal; 2017-02-27 07:00)
DX: M17.12 Unilateral primary osteoarthritis, left knee (principal); I25.10 Atherosclerotic heart disease of native coronary artery without angina pectoris; I25.2 Old myocardial infarction; I73.9 Peripheral vascular disease, unspecified; I10 Essential (primary) hypertension; E11.42 Type 2 diabetes mellitus with diabetic polyneuropathy; E78.5 Hyperlipidemia, unspecified; K21.9 Gastro-esophageal reflux disease without esophagitis; M19.90 Unspecified osteoarthritis, unspecified site; E66.9 Obesity, unspecified; G47.33 Obstructive sleep apnea (adult) (pediatric); I69.398 Other sequelae of cerebral infarction; R26.89 Other abnormalities of gait and mobility; Z68.31 Body mass index [BMI] 31.0-31.9, adult; Z87.891 Personal history of nicotine dependence; Z95.1 Presence of aortocoronary bypass graft; Z79.4 Long term (current) use of insulin; Z79.84 Long term (current) use of oral hypoglycemic drugs; Z79.82 Long term (current) use of aspirin; Z79.899 Other long term (current) drug therapy